=== PATIENT | male | born 1960 | race Caucasian/White ===

== ENCOUNTER 2018-10-10 17:16 | Inpatient (IN) ==
[2018-10-11] MEDS ORDERED: Bisacodyl 10 MG Supp RECTAL PRN (01:16)
[2018-10-11] MEDS ORDERED: Acetaminophen 325 MG Tablet PO PRN (01:16)
[2018-10-11] MEDS ORDERED: Vancomycin Consult Pharmacy OTHER PRN (01:22)
[2018-10-11] MEDS: Sod Chloride 0.9% Inj 1,000 ML IV.CONT SCH ×2 (02:10→14:27)
[2018-10-11] MEDS: Heparin - SQ 10,000 UNITS/ML Vial SQ SCH ×2 (02:10→14:26)
--- NOTE | 2018-10-11 02:17 | P.HPIM ---
History of Present Illness Service: [facility] Primary Care Physician: No Primary Care Physician Chief Complaint: Shortness of breath, cough History of Present Illness: 57-year-old male with a history of chronic pain presented to the ED with complaints of shortness of breath cough and fatigue for the past 2 weeks. He states he has been progressively getting worse over the last 2 weeks with shortness of breath, cough with yellow whitish sputum production, fever, chills, night sweats and nausea. He states he has no appetite and has lost about 15 pounds. He states he was around somebody that was sick at the [employer] and she sneezed all over him and he feels that so he got sick. He denies any chest pain, abdominal pain, dysuria, headaches, dizziness. Inpatient Certification Inpatient Certification: I certify that the inpatient services were ordered in accordance with Medicare regulations governing the order. This includes certification that hospital inpatient services are reasonable and necessary and in the case of services not specified as inpatient-only under 42 CFR 419.22(n), that they are appropriately provided as inpatient services in accordance to with the 2-midnight benchmark under 43 CFR 412.3(e) Estimated Total Length of Stay (Days): 2 Plans for Post Hospital Care: Not yet determined Review of Systems Review of Systems: all other systems reviewed are negative PMFSH History History Provided By: Patient Medical History Medical History Chronic pain (Acute) Surgical History Surgical History History of facial surgery (Acute) Previous back surgery (Acute) Family History Family History Father HTN (hypertension) Social History Social History Substance History: No History of Abuse Smoking Status: Never smoker How Often Do You Have a Drink Containing Alcohol: Never Medications and Allergies Allergies Allergy/AdvReac Type Severity Reaction Status Date / Time No Known Allergies Allergy Verified 10/10/18 17:24 Home Medications Medication Instructions Recorded Confirmed Type cyclobenzaprine 10 mg PO TID 10/10/18 10/10/18 History gabapentin 600 mg PO TID 10/10/18 10/10/18 History hydrocodone-acetaminophen 1 tab PO Q6H 10/10/18 10/10/18 History zolpidem [Ambien] PO DAILY 10/10/18 History Active Medications: Active Medications Acetaminophen (Tylenol) 650 mg PO Q4H PRN PRN Reason: Temp > 100.4 Al Hydroxide/Mg Hydroxide (Milk Of Magnesia Liq) 30 ml PO Q12H PRN PRN Reason: Mild Constipation Albuterol (Duoneb Neb (Prn)) 1 ampul NEB Q2HR NEB PRN PRN Reason: sob Albuterol (Duoneb Neb (Louise)) 1 ampul NEB Q6HR WHILE AWAKE NEB LOUISE Bisacodyl (Dulcolax Supp) 10 mg RECTAL DAILY PRN PRN Reason: SEVERE CONSITIPATION Heparin Sodium (Porcine) (Heparin Inj) 5,000 units SQ Q12H LOUISE Sodium Chloride (Ns Inj) 1,000 mls @ 100 mls/hr IV.CONT .Q10H LOUISE Piperacillin/Tazobactam/Dextrose (Zosyn 4.5 Gm Premix) 4.5 gm in 100 mls @ 200 mls/hr IV.SIG Q6H LOUISE Lactulose (Lactulose Liq) 30 ml PO DAILY PRN PRN Reason: SEVERE CONSITIPATION Ondansetron HCl (Zofran Inj) 4 mg IV.PUSH Q6H PRN PRN Reason: NAUSEA OR VOMITING Pharmacy Profile Note (Vancomycin Consult Pharmacy) 1 each OTHER UNSCH PRN PRN Reason: Pharmacy to dose Sennosides (Senokot) 17.2 mg PO Q12H PRN PRN Reason: Moderate Constipation Sodium Chloride (Ns Flush) 2 ml IV.FLUSH BID LOUISE Sodium Chloride (Ns Flush) 2 ml IV.FLUSH PRN PRN PRN Reason: FLUSH AFTER USING IV ACCESS Physical Exam Narrative: GENERAL: Acute distress, coughing, restless, short of breath on 2 L SKIN: Warm and dry. No open lesions EYES: No scleral icterus. No injection or drainage. NECK: Supple, trachea midline. No JVD or lymphadenopathy. CARDIOVASCULAR: Regular rate and rhythm without murmurs, gallops, or rubs. RESPIRATORY: Diminished lung sounds at bases, expiratory wheezes noted throughout GASTROINTESTINAL: Abdomen soft, non-tender, nondistended. MUSCULOSKELETAL: No cyanosis, or edema. Caprini VTE Risk Assessment Caprini VTE Risk Assessment: Moderate/High Risk (score >= 2) Caprini Risk Assessment Model: Point Value = 1 Point Value = 2 Point Value = 3 Point Value = 5 Age 41-60 Minor surgery BMI > 25 kg/m2 Swollen legs Varicose veins or History of unexplained or recurrent spontaneous Oral contraceptives or hormone replacement Sepsis (< 1 month) Serious lung disease, including pneumonia (< 1 month) Abnormal pulmonary function Acute myocardial infarction Congestive heart failure (< 1 month) History of inflammatory bowel disease Medical patient at bed rest Age 61-74 Arthroscopic surgery Major open surgery (> 45 min) Laparoscopic surgery (> 45 min) Malignancy Confined to bed (> 72 hours) Immobilizing plaster cast Central venous access Age >= 75 History of VTE Family history of VTE Factor V Leiden Prothrombin [id number] Lupus anticoagulant Anticardiolipin antibodies Elevated serum homocysteine Heparin-induced thrombocytopenia Other congenital or acquired thrombophilia Stroke (< 1 month) Elective arthroplasty Hip, pelvis, or leg fracture Acute spinal cord injury (< 1 month) Prophylaxis Regimen: Total Risk Factor Score Risk Level Prophylaxis Regimen 0-1 Low Early ambulation 2 Moderate Order ONE of the following: *Sequential Compression Device (SCD) *Heparin 5000 units SQ BID 3-4 Higher Order ONE of the following medications: *Heparin 5000 units SQ TID *Enoxaparin/Lovenox 40 mg SQ daily (WT < 150 kg, CrCl > 30 mL/min) *Enoxaparin/Lovenox 30 mg SQ daily (WT < 150 kg, CrCl > 10-29 mL/min) *Enoxaparin/Lovenox 30 mg SQ BID (WT < 150 kg, CrCl > 30 mL/min) AND/OR *Sequential Compression Device (SCD) 5 or more Highest Order ONE of the following medications: *Heparin 5000 units SQ TID (Preferred with Epidurals) *Enoxaparin/Lovenox 40 mg SQ daily (WT < 150 kg, CrCl > 30 mL/min) *Enoxaparin/Lovenox 30 mg SQ daily (WT < 150 kg, CrCl > 10-29 mL/min) *Enoxaparin/Lovenox 30 mg SQ BID (WT < 150 kg, CrCl > 30 mL/min) AND *Sequential Compression Device (SCD) Assessment and Plan Plan 57-year-old male with a history of chronic pain presented to the ED with complaints of shortness of breath cough and fatigue for the past 2 weeks. Severe sepsis, WBC 16.3, tachycardia heart rate 112, source bilateral pneumonia , lactate 2.[address] reviewed and shows Bilateral pneumonia consisting of widespread groundglass, nodular and cavitary infiltrates -2 L bolus given in the ED, continue IVF -IV antibiotics vancomycin and Zosyn -Sputum culture and AFB culture ordered -Blood cultures pending -Legionella and pneumococcal urinary antigen ordered -Repeat lactic acid pending Acute respiratory failure, 92% on room air upon admission, secondary to bilateral pneumonia -Duo nebs scheduled and as needed -IV steroids -Oxygen, 2 L nasal cannula Hypertensive emergency, blood pressure on admission systolic greater than 200 In the ED patient was treated with labetalol and clonidine -Continue IV labetalol, consider Cardene drip if no improvement Chronic pain -Resume home [place] and gabapentin, Flexeril as needed DVT prophylaxis: SCDs GI prophylaxis: Protonix
[2018-10-11] MEDS ORDERED: MethylPREDNISolone Sod Succinate Inj 125 MG/2 ML Vial IV.PUSH ONE (02:20)
[2018-10-11] MEDS: Pantoprazole Inj 40 MG Vial IV.PUSH SCH (03:00)
[2018-10-11] MEDS: Piperacil/Tazo 4.5 GM Premix 4.5 GM/100 ML BAG IV.SIG SCH ×4 (03:00→21:22)
[2018-10-11 03:42] LABS: Baso % (Auto) 0.3 % (0.0-2.0); Hematocrit 36.1 % (39.0-51.0); Hemoglobin 12.9 gm/dL (13.0-17.0); Lymph # (Auto) 1.7 th/mm3 (1.0-4.8); Mean Corpuscular HGB Conc 35.7 % (32.0-36.0); Mean Corpuscular Hemoglobin 31.2 pg (27.0-34.0); Mean Corpuscular Volume 87.2 fL (80.0-100.0); Mean Platelet Volume 8.1 fL (7.0-11.0); Mono # (Auto) 0.9 th/mm3 (0.0-0.9); Mono % (Auto) 7.1 % (0.0-8.0); Neut # (Auto) 10.6 th/mm3 (1.8-7.7); Neut % (Auto) 79.6 % (16.0-70.0); Platelet Count 212 th/mm3 (150-450); Red Blood Count 4.14 mil/mm3 (4.50-5.90); Red Cell Distribution Width 14.3 % (11.6-17.2); White Blood Count 13.3 th/mm3 (4.0-11.0)
[2018-10-11] MEDS ORDERED: Vancomycin Inj 1,000 MG in Sodium Chlor 0.9% Inj 250 ML IV.SIG ONE (04:00)
[2018-10-11 04:10] LABS: Calcium 7.5 mg/dL (8.5-10.1); Carbon Dioxide 27.3 meq/L (21.0-32.0)
[2018-10-11 04:14] LABS: Potassium 2.8 meq/L (3.5-5.1)
[2018-10-11] MEDS ORDERED: Potassium Chloride 25 MEQ Effervescent Tablet PO ONE (05:44)
[2018-10-11] MEDS: Gabapentin 300 MG Capsule PO SCH ×3 (08:50→17:25)
[2018-10-11] MEDS: MethylPREDNISolone Sod Succinate Inj 40 MG/ML Vial IV.PUSH SCH ×3 (09:02→21:22)
--- NOTE | 2018-10-11 09:58 | P.PNIM ---
Patient was seen this morning after being admitted for pneumonia and sepsis overnight. He is eating breakfast and breathing comfortably on supplemental oxygen. States that he is breathing much easier after treatment. Lung braxton still sound like pneumonia. I am adding incentive spirometry and Acapella to his treatment plan. Other than that continue IV antibiotics and supportive care.
[2018-10-11] MEDS: Labetalol HCl Inj 100 MG/20 ML Vial IV.PUSH PRN ×3 (12:26→22:55)
[2018-10-11] MEDS: Lisinopril 20 MG Tablet PO SCH (14:26)
[2018-10-11] MEDS: Vancomycin Inj 1,000 MG in Sodium Chlor 0.9% Inj 250 ML IV.SIG SCH (17:26)
[2018-10-11] MEDS: amLODIPine 10 MG Tablet PO SCH (18:30)
[2018-10-12] MEDS: Heparin - SQ 10,000 UNITS/ML Vial SQ SCH ×2 (04:31→13:14)
[2018-10-12] MEDS: Piperacil/Tazo 4.5 GM Premix 4.5 GM/100 ML BAG IV.SIG SCH ×4 (04:32→20:04)
[2018-10-12] MEDS: Pantoprazole Inj 40 MG Vial IV.PUSH SCH (04:32)
[2018-10-12] MEDS: MethylPREDNISolone Sod Succinate Inj 40 MG/ML Vial IV.PUSH SCH ×3 (05:23→23:22)
[2018-10-12] MEDS: Vancomycin Inj 1,000 MG in Sodium Chlor 0.9% Inj 250 ML IV.SIG SCH ×2 (05:25→17:21)
[2018-10-12 06:44] LABS: Hematocrit 36.7 % (39.0-51.0); Hemoglobin 12.6 gm/dL (13.0-17.0); Mean Corpuscular HGB Conc 34.3 % (32.0-36.0); Mean Corpuscular Hemoglobin 30.6 pg (27.0-34.0); Mean Corpuscular Volume 89.3 fL (80.0-100.0); Mean Platelet Volume 8.6 fL (7.0-11.0); Platelet Count 281 th/mm3 (150-450); Red Blood Count 4.12 mil/mm3 (4.50-5.90); Red Cell Distribution Width 14.6 % (11.6-17.2); White Blood Count 16.9 th/mm3 (4.0-11.0)
[2018-10-12 07:04] LABS: Calcium 8.1 mg/dL (8.5-10.1); Carbon Dioxide 26.7 meq/L (21.0-32.0)
[2018-10-12] MEDS: Lisinopril 20 MG Tablet PO SCH ×2 (08:53→19:59)
[2018-10-12] MEDS: amLODIPine 10 MG Tablet PO SCH (08:53)
[2018-10-12] MEDS: Gabapentin 300 MG Capsule PO SCH ×3 (08:53→17:21)
[2018-10-12] MEDS ORDERED: MethylPREDNISolone Sod Succinate Inj 40 MG/ML Vial IV.PUSH SCH (09:00)
[2018-10-12] MEDS: LORazepam 0.5 MG Tablet PO PRN (11:33)
--- NOTE | 2018-10-12 12:28 | P.PN ---
Subjective Interval history: Follow-up severe sepsis/community-acquired bacterial pneumonia/COPD exacerbation /malignant hypertension October 12, 2018-patient seen and examined, complains of shortness of breath and is wheezing on exam. States, he did not have a good night sleep. Physical Exam Vital signs: Vital Signs 10/11/18 12:35 10/11/18 12:48 10/11/18 13:00 Temperature 97.5 F L Pulse Rate 75 71 78 Respiratory Rate 19 18 Blood Pressure 201/90 H 185/88 H Pulse Oximetry 95 97 10/11/18 13:19 10/11/18 14:00 10/11/18 14:45 Temperature Pulse Rate 70 84 74 Respiratory Rate 16 18 Blood Pressure 161/75 H Pulse Oximetry 97 10/11/18 15:00 10/11/18 16:00 10/11/18 16:11 Temperature 97.6 F Pulse Rate 85 80 77 Respiratory Rate 19 Blood Pressure 173/78 H Pulse Oximetry 95 10/11/18 17:00 10/11/18 17:15 10/11/18 17:30 Temperature 98 F Pulse Rate 90 82 78 Respiratory Rate 19 18 Blood Pressure 192/93 H 179/78 H Pulse Oximetry 95 97 10/11/18 18:00 10/11/18 18:31 10/11/18 19:00 Temperature 98.6 F Pulse Rate 78 79 77 Respiratory Rate 18 18 Blood Pressure 174/84 H 200/94 H Pulse Oximetry 95 95 10/11/18 20:00 10/11/18 20:41 10/11/18 21:00 Temperature Pulse Rate 82 79 90 Respiratory Rate 17 Blood Pressure Pulse Oximetry 98 10/11/18 22:00 10/11/18 23:00 10/12/18 00:00 Temperature 98.2 F Pulse Rate 88 78 94 H Respiratory Rate 18 Blood Pressure 181/82 H Pulse Oximetry 95 10/12/18 01:00 10/12/18 02:00 10/12/18 03:00 Temperature 97.6 F Pulse Rate 93 H 93 H 83 Respiratory Rate 18 Blood Pressure 169/71 H Pulse Oximetry 93 L 10/12/18 04:00 10/12/18 05:00 10/12/18 06:00 Temperature Pulse Rate 78 80 81 Respiratory Rate Blood Pressure Pulse Oximetry 10/12/18 07:00 10/12/18 08:00 10/12/18 09:00 Temperature 97.5 F L Pulse Rate 92 H 80 90 Respiratory Rate 18 Blood Pressure 147/65 H Pulse Oximetry 95 10/12/18 10:00 10/12/18 10:48 10/12/18 11:32 Temperature 98.1 F Pulse Rate 78 76 Respiratory Rate 18 Blood Pressure 174/81 H Pulse Oximetry 97 95 Intake & Output 10/11/18 10/12/18 10/12/18 18:59 06:59 18:59 Intake Total 2420 / 2420 680 / 680 1250 / 1250 Output Total 870 / 870 Balance 1550 / 1550 680 / 680 1250 / 1250 Weight 79.1 kg 80 kg Intake: IV 1700 / 1700 200 / 200 1250 / 1250 NS Inj 1,000 ML @ 100 mls/hr IV 1000 / 1000 900 / 900 .CONT .Q10H CARTER Rx#:[id number] Zosyn 4.5 GM Premix 4.5 gm In 200 / 200 200 / 200 100 / 100 100 ml @ 200 mls/hr IV.SIG Q6H CARTER Rx#:[id number] Vancomycin Inj 1,000 MG In NS 500 / 500 250 / 250 Inj 250 ML @ 250 mls/hr IV.SIG Q12H CARTER Rx#:[id number] Oral 720 / 720 480 / 480 Output: Urine 870 / 870 Other: # Voids 3 Date of Last Bowel Movement 10/12/18 Narrative: GENERAL: NAD SKIN: Warm and dry. HEAD: Atraumatic. Normocephalic. EYES: Pupils equal and round. No scleral icterus. No injection or drainage. ENT: No nasal bleeding or discharge. Mucous membranes pink and moist. NECK: Trachea midline. No JVD. CARDIOVASCULAR: Regular rate and rhythm. RESPIRATORY: No accessory muscle use. Clear to auscultation. Breath sounds decreased bilaterally. Positive for expiratory wheezing GASTROINTESTINAL: Abdomen soft, non-tender, nondistended. Hepatic and splenic margins not palpable. MUSCULOSKELETAL: Extremities without clubbing, cyanosis, or edema. No obvious deformities. NEUROLOGICAL: Awake and alert. No obvious cranial nerve deficits. Motor grossly within normal limits. Five out of 5 muscle strength in the arms and legs. Normal speech. PSYCHIATRIC: Appropriate mood and affect; insight and judgment normal. Results - Labs CBC & Chem 7: 10/12/18 06:06 10/12/18 06:06 Laboratory Results - last 24 hr 10/11/18 10/12/18 10/12/18 11:33 06:06 06:06 WBC 16.9 H RBC 4.12 L Hgb 12.6 L Hct 36.7 L MCV 89.3 MCH 30.6 MCHC 34.3 RDW 14.6 Plt Count 281 D MPV 8.6 Sodium 140 Potassium 3.3 L 3.0 L Chloride 106 Carbon Dioxide 26.7 Anion Gap 7 BUN 9 Creatinine 0.89 Estimated GFR 88 L Random Glucose 169 H Calcium 8.1 L Microbiology 10/11/18 03:40 Sputum - Expectorated Sputum Gram Stain - Final 10/11/18 05:15 Urine - Clean Catch Urine Streptococcus pneumoniae Antigen ( M - Final Presumptive negative for streptococcus pneumoniae antigen, suggesting no current or recent infection. Infection due to Streptococcus pneumoniae cannot be ruled out since the antigen present in the sample may be below the detection limit of the test. 10/11/18 05:15 Urine - Clean Catch Urine Legionella Antigen - Final Presumptive negative for Legionella pneumophila serogroup 1 antigen in urine, suggesting no recent or recurrent infection. Infection due to Legionella cannot be ruled out since other serogroups and species may cause disease, antigen may not be present in urine in early infection, and the level of antigen present in the urine may be below the detection limit of the test. Assessment and Plan - Plan 57-year-old man Severe sepsis Currently on vancomycin and Zosyn pending culture report Community-acquired bacterial pneumonia with respiratory failure Currently on vancomycin and Zosyn Urinary pneumococcal and Legionella antigen negative Sputum culture pending DuoNeb as needed COPD exacerbation Increase Solu-Medrol to 40 mg 4 times daily Start Spiriva, Symbicort and continue with DuoNeb scheduled and as needed Malignant hypertension Improving Increase lisinopril to 20 mg twice daily, start hydralazine 25 mg 3 times daily and continue Norvasc Chronic pain syndrome Continue with home regiment Hypokalemia Give potassium 60 mEq x1 now and monitor electrolyte DVT prophylaxis: SCDs GI prophylaxis: Protonix Transfer to [facility]
[2018-10-12] MEDS ORDERED: hydrALAZINE 25 MG Tablet PO SCH (13:00)
[2018-10-12] MEDS ORDERED: hydrALAZINE 25 MG Tablet PO ONE (13:52)
[2018-10-12] MEDS: Labetalol HCl Inj 100 MG/20 ML Vial IV.PUSH PRN ×2 (17:20→21:45)
[2018-10-12] MEDS: Tiotropium Bromide 18 MCG/ACT Inhaler INH SCH (17:22)
[2018-10-12] MEDS ORDERED: Pharmacy Ordered Lab Info OTHER ONE (17:45)
[2018-10-12] MEDS: Metoprolol Tartrate 50 MG Tablet PO SCH ×2 (18:21→19:59)
[2018-10-12] MEDS: Budesonide-Formoterol 160/4.5 MCG 6 GM Inhaler INH SCH (19:59)
[2018-10-12] MEDS: hydrALAZINE 50 MG Tablet PO SCH (21:28)
[2018-10-13] MEDS: Heparin - SQ 10,000 UNITS/ML Vial SQ SCH ×2 (02:53→14:30)
[2018-10-13] MEDS: Piperacil/Tazo 4.5 GM Premix 4.5 GM/100 ML BAG IV.SIG SCH ×4 (02:53→22:10)
[2018-10-13] MEDS: Pantoprazole Inj 40 MG Vial IV.PUSH SCH (02:54)
[2018-10-13] MEDS: MethylPREDNISolone Sod Succinate Inj 40 MG/ML Vial IV.PUSH SCH ×2 (05:42→22:10)
[2018-10-13] MEDS ORDERED: Pharmacy Ordered Lab Info OTHER ONE (05:45)
[2018-10-13] MEDS: Metoprolol Tartrate 50 MG Tablet PO SCH ×2 (08:37→22:09)
[2018-10-13] MEDS: Lisinopril 20 MG Tablet PO SCH ×2 (08:37→22:09)
[2018-10-13] MEDS: Gabapentin 300 MG Capsule PO SCH ×3 (08:38→17:21)
[2018-10-13] MEDS: amLODIPine 10 MG Tablet PO SCH (08:38)
[2018-10-13] MEDS: hydrALAZINE 50 MG Tablet PO SCH ×3 (08:38→17:20)
[2018-10-13] MEDS: Budesonide-Formoterol 160/4.5 MCG 6 GM Inhaler INH SCH ×2 (08:39→22:10)
[2018-10-13] MEDS: Tiotropium Bromide 18 MCG/ACT Inhaler INH SCH (08:39)
[2018-10-13] MEDS ORDERED: Vancomycin Inj 1,500 MG in Sodium Chlor 0.9% Inj 500 ML IV.SIG SCH (11:00)
--- NOTE | 2018-10-13 11:08 | P.PN ---
Subjective Interval history: Follow-up severe sepsis/community-acquired bacterial pneumonia/COPD exacerbation /malignant hypertension October 12, 2018-patient seen and examined, complains of shortness of breath and is wheezing on exam. States, he did not have a good night sleep. October 13, 2018-patient seen and examined, reports some improvement of shortness of breath, denies any chest pain. BP still labile Physical Exam Vital signs: Vital Signs 10/12/18 11:32 10/12/18 12:00 10/12/18 12:41 Temperature 98.1 F Pulse Rate 76 80 89 Respiratory Rate 18 17 Blood Pressure 174/81 H 159/79 H Pulse Oximetry 95 94 L 10/12/18 13:00 10/12/18 13:50 10/12/18 13:51 Temperature Pulse Rate 94 H 85 98 H Respiratory Rate 17 16 Blood Pressure 166/74 H Pulse Oximetry 94 L 98 10/12/18 14:00 10/12/18 15:00 10/12/18 15:44 Temperature Pulse Rate 90 84 101 H Respiratory Rate 18 Blood Pressure 179/96 H Pulse Oximetry 96 10/12/18 16:00 10/12/18 17:00 10/12/18 17:32 Temperature 98.2 F Pulse Rate 100 H 98 H 88 Respiratory Rate 18 Blood Pressure 189/88 H Pulse Oximetry 96 10/12/18 17:46 10/12/18 18:03 10/12/18 19:00 Temperature 98.5 F Pulse Rate 85 87 85 Respiratory Rate 17 17 Blood Pressure 161/77 H 202/93 H Pulse Oximetry 95 92 L 10/12/18 20:00 10/12/18 21:00 10/12/18 22:00 Temperature Pulse Rate 85 79 79 Respiratory Rate Blood Pressure 183/89 H Pulse Oximetry 92 L 10/12/18 22:21 10/12/18 23:00 10/13/18 00:00 Temperature 98.6 F Pulse Rate 88 81 84 Respiratory Rate 16 17 Blood Pressure 165/74 H Pulse Oximetry 94 L 10/13/18 01:00 10/13/18 02:00 10/13/18 03:00 Temperature 98.5 F Pulse Rate 84 78 75 Respiratory Rate 17 Blood Pressure 153/80 H Pulse Oximetry 94 L 10/13/18 04:00 10/13/18 05:00 10/13/18 05:57 Temperature Pulse Rate 81 65 67 Respiratory Rate Blood Pressure Pulse Oximetry 10/13/18 07:00 10/13/18 08:00 10/13/18 09:00 Temperature 98.4 F Pulse Rate 67 72 84 Respiratory Rate 18 Blood Pressure 160/73 H Pulse Oximetry 94 L 94 L 10/13/18 10:00 Temperature Pulse Rate 92 H Respiratory Rate Blood Pressure Pulse Oximetry Intake & Output 10/12/18 10/13/18 10/13/18 18:59 06:59 18:59 Intake Total 2069 / 0 570 / 570 100 / 100 Output Total 300 / 300 Balance 2069 270 / 270 100 / 100 Weight 81 kg Intake: IV 1350 / 1350 450 / 450 100 / 100 NS Inj 1,000 ML @ 100 mls/hr IV 900 / 900 .CONT .Q10H CARTER Rx#:[id number] Zosyn 4.5 GM Premix 4.5 gm In 200 / 200 200 / 200 100 / 100 100 ml @ 200 mls/hr IV.SIG Q6H CARTER Rx#:[id number] Vancomycin Inj 1,000 MG In NS 250 / 250 250 / 250 Inj 250 ML @ 250 mls/hr IV.SIG Q12H CARTER Rx#:[id number] Oral 720 / 720 120 / 120 Output: Urine 300 / 300 Other: # Voids 6 Date of Last Bowel Movement 10/12/18 10/12/18 # Bowel Movements 2 Narrative: GENERAL: NAD SKIN: Warm and dry. HEAD: Atraumatic. Normocephalic. EYES: Pupils equal and round. No scleral icterus. No injection or drainage. ENT: No nasal bleeding or discharge. Mucous membranes pink and moist. NECK: Trachea midline. No JVD. CARDIOVASCULAR: Regular rate and rhythm. RESPIRATORY: No accessory muscle use. Clear to auscultation. Breath sounds decreased bilaterally. Positive for expiratory wheezing GASTROINTESTINAL: Abdomen soft, non-tender, nondistended. Hepatic and splenic margins not palpable. MUSCULOSKELETAL: Extremities without clubbing, cyanosis, or edema. No obvious deformities. NEUROLOGICAL: Awake and alert. No obvious cranial nerve deficits. Motor grossly within normal limits. Five out of 5 muscle strength in the arms and legs. Normal speech. PSYCHIATRIC: Appropriate mood and affect; insight and judgment normal. Results - Labs CBC & Chem 7: 10/12/18 06:06 10/12/18 06:06 Laboratory Results - last 24 hr 10/12/18 10/13/18 18:15 05:30 Vancomycin Trough 28.1 H 8.1 Microbiology 10/11/18 03:40 Sputum - Expectorated Sputum Gram Stain - Final 10/11/18 03:40 Sputum - Expectorated Sputum Sputum Culture - Final Heavy growth normal respiratory pablo 10/11/18 03:40 Sputum - Expectorated Sputum Acid Fast Bacilli Smear - Final No acid fast bacilli seen - Procedures None Assessment and Plan - Plan 57-year-old man Severe sepsis-Resolved Currently on vancomycin and Zosyn pending culture report Community-acquired bacterial pneumonia with respiratory failure Currently on vancomycin and Zosyn Urinary pneumococcal and Legionella antigen negative Sputum culture pending DuoNeb as needed COPD exacerbation Improving Decrease Solu-Medrol to 40 mg 12 times daily Continue Spiriva, Symbicort and DuoNeb scheduled and as needed Add Mucinex Malignant hypertension Improving Continue lisinopril 20 mg twice daily, hydralazine 50 mg 3 times daily , Lopressor 50 mg twice daily and Norvasc Chronic pain syndrome Continue with home regiment Hypokalemia Give potassium 60 mEq x1 now and monitor electrolyte DVT prophylaxis: SCDs GI prophylaxis: Protonix Transfer to [facility]
[2018-10-13] MEDS ORDERED: Benzonatate 100 MG Capsule PO PRN (12:19)
[2018-10-13] MEDS: guaiFENesin 600 MG ER Tablet PO SCH ×2 (12:54→22:10)
[2018-10-13] MEDS ORDERED: guaiFENesin 600 MG ER Tablet PO SCH (21:00)
[2018-10-13] MEDS: LORazepam 0.5 MG Tablet PO PRN (22:16)
[2018-10-13 23:34] VITALS: RESP 16
[2018-10-14] MEDS: Heparin - SQ 10,000 UNITS/ML Vial SQ SCH (03:02)
[2018-10-14] MEDS: Pantoprazole Inj 40 MG Vial IV.PUSH SCH (03:02)
[2018-10-14] MEDS: Piperacil/Tazo 4.5 GM Premix 4.5 GM/100 ML BAG IV.SIG SCH ×2 (03:03→07:48)
[2018-10-14 05:08] LABS: Baso % (Auto) 0.1 % (0.0-2.0); Hematocrit 39.5 % (39.0-51.0); Hemoglobin 13.7 gm/dL (13.0-17.0); Lymph # (Auto) 1.7 th/mm3 (1.0-4.8); Lymph % (Auto) 8.5 % (9.0-44.0); Mean Corpuscular HGB Conc 34.7 % (32.0-36.0); Mean Corpuscular Hemoglobin 30.9 pg (27.0-34.0); Mean Platelet Volume 8.3 fL (7.0-11.0); Mono # (Auto) 1.4 th/mm3 (0.0-0.9); Neut # (Auto) 16.6 th/mm3 (1.8-7.7); Neut % (Auto) 84.4 % (16.0-70.0); Platelet Count 395 th/mm3 (150-450); Red Blood Count 4.43 mil/mm3 (4.50-5.90); Red Cell Distribution Width 14.9 % (11.6-17.2); White Blood Count 19.6 th/mm3 (4.0-11.0)
[2018-10-14 05:26] LABS: Alanine Aminotransferase 46 U/L (12-78); Albumin 2.6 g/dL (3.4-5.0); Anion Gap 10 meq/L (5-15); Aspartate Aminotransferase 41 U/L (15-37); Blood Urea Nitrogen 11 mg/dL (7-18); Calcium 8.2 mg/dL (8.5-10.1); Carbon Dioxide 27.7 meq/L (21.0-32.0); Chloride 101 meq/L (98-107); Glomerular Filtration Rate 64 mL/min (>89); Glucose,Random 132 mg/dL (74-106); Potassium 3.1 meq/L (3.5-5.1); Sodium 139 meq/L (136-145)
[2018-10-14 05:29] LABS: Alkaline Phosphatase 97 U/L (45-117); Total Protein 7.2 g/dL (6.4-8.2)
[2018-10-14] MEDS: Gabapentin 300 MG Capsule PO SCH (08:56)
[2018-10-14] MEDS: MethylPREDNISolone Sod Succinate Inj 40 MG/ML Vial IV.PUSH SCH (08:56)
[2018-10-14] MEDS: hydrALAZINE 50 MG Tablet PO SCH (08:56)
[2018-10-14] MEDS: amLODIPine 10 MG Tablet PO SCH (08:56)
[2018-10-14] MEDS: Metoprolol Tartrate 50 MG Tablet PO SCH (08:56)
[2018-10-14] MEDS: Lisinopril 20 MG Tablet PO SCH (08:56)
[2018-10-14] MEDS: guaiFENesin 600 MG ER Tablet PO SCH (08:56)
[2018-10-14] MEDS: Tiotropium Bromide 18 MCG/ACT Inhaler INH SCH (08:57)
[2018-10-14] MEDS: Budesonide-Formoterol 160/4.5 MCG 6 GM Inhaler INH SCH (08:57)
--- NOTE | 2018-10-14 09:43 | P.PN ---
Subjective Interval history: Follow-up severe sepsis/community-acquired bacterial pneumonia/COPD exacerbation /malignant hypertension October 12, 2018-patient seen and examined, complains of shortness of breath and is wheezing on exam. States, he did not have a good night sleep. October 13, 2018-patient seen and examined, reports some improvement of shortness of breath, denies any chest pain. BP still labile October 14, 2018-patient seen and examined, denies any chest pain or shortness of breath. BP normotensive. No acute event overnight. Looking forward to go home today. Physical Exam Vital signs: Vital Signs 10/13/18 10:00 10/13/18 11:00 10/13/18 12:00 Temperature 98.0 F Pulse Rate 92 H 85 90 Respiratory Rate 16 Blood Pressure 180/84 H Pulse Oximetry 97 10/13/18 13:00 10/13/18 13:15 10/13/18 13:29 Temperature Pulse Rate 86 85 87 Respiratory Rate 16 16 Blood Pressure 143/67 H Pulse Oximetry 96 10/13/18 14:00 10/13/18 15:00 10/13/18 16:00 Temperature 98.1 F Pulse Rate 80 72 92 H Respiratory Rate 16 Blood Pressure 146/80 H Pulse Oximetry 95 10/13/18 17:00 10/13/18 18:00 10/13/18 19:00 Temperature 98.6 F Pulse Rate 92 H 98 H 93 H Respiratory Rate 18 Blood Pressure 202/95 H Pulse Oximetry 95 10/13/18 20:00 10/13/18 20:17 10/13/18 21:00 Temperature Pulse Rate 84 76 88 Respiratory Rate 16 Blood Pressure Pulse Oximetry 97 10/13/18 22:00 10/13/18 23:00 10/13/18 23:33 Temperature 98.6 F Pulse Rate 85 88 Respiratory Rate 18 16 Blood Pressure 202/95 H Pulse Oximetry 96 10/14/18 00:00 10/14/18 01:00 10/14/18 02:00 Temperature Pulse Rate 75 75 74 Respiratory Rate Blood Pressure Pulse Oximetry 10/14/18 03:00 10/14/18 04:00 10/14/18 05:00 Temperature Pulse Rate 76 68 70 Respiratory Rate Blood Pressure Pulse Oximetry 10/14/18 05:12 10/14/18 07:00 Temperature Pulse Rate 70 65 Respiratory Rate Blood Pressure Pulse Oximetry Intake & Output 10/13/18 10/14/18 10/14/18 18:59 06:59 18:59 Intake Total 2315 / 2315 680 / 680 100 / 100 Balance 2315 / 2315 680 / 680 100 / 100 Weight 81.6 kg Intake: IV 715 / 715 200 / 200 100 / 100 Zosyn 4.5 GM Premix 4.5 gm In 200 / 200 200 / 200 100 / 100 100 ml @ 200 mls/hr IV.SIG Q6H CARTER Rx#:[id number] Vancomycin Inj 1,500 MG In NS 515 / 515 Inj 500 ML @ 250 mls/hr IV.SIG Q24H CARTER Rx#:[id number] Oral 1600 / 1600 480 / 480 Other: # Voids 5 2 Date of Last Bowel Movement 10/12/18 Narrative: GENERAL: NAD SKIN: Warm and dry. HEAD: Atraumatic. Normocephalic. EYES: Pupils equal and round. No scleral icterus. No injection or drainage. ENT: No nasal bleeding or discharge. Mucous membranes pink and moist. NECK: Trachea midline. No JVD. CARDIOVASCULAR: Regular rate and rhythm. RESPIRATORY: No accessory muscle use. Clear to auscultation. Breath sounds decreased bilaterally. Positive for expiratory wheezing GASTROINTESTINAL: Abdomen soft, non-tender, nondistended. Hepatic and splenic margins not palpable. MUSCULOSKELETAL: Extremities without clubbing, cyanosis, or edema. No obvious deformities. NEUROLOGICAL: Awake and alert. No obvious cranial nerve deficits. Motor grossly within normal limits. Five out of 5 muscle strength in the arms and legs. Normal speech. PSYCHIATRIC: Appropriate mood and affect; insight and judgment normal. Results - Labs CBC & Chem 7: 10/14/18 03:10 10/14/18 03:10 Laboratory Results - last 24 hr 10/14/18 10/14/18 03:10 03:10 WBC 19.6 H RBC 4.43 L Hgb 13.7 Hct 39.5 MCV 89.0 MCH 30.9 MCHC 34.7 RDW 14.9 Plt Count 395 D MPV 8.3 Prelim Diff (Auto) Slide review pending Neut % (Auto) 84.4 H Lymph % (Auto) 8.5 L [place] % (Auto) 7.0 Eos % (Auto) 0.0 Baso % (Auto) 0.1 Neut # (Auto) 16.6 H Lymph # (Auto) 1.7 [place] # (Auto) 1.4 H Eos # (Auto) 0.0 Baso # (Auto) 0.0 Differential Comment . Sodium 139 Potassium 3.1 L Chloride 101 Carbon Dioxide 27.7 Anion Gap 10 BUN 11 Creatinine 1.17 Estimated GFR 64 L Random Glucose 132 H Calcium 8.2 L Total Bilirubin 0.4 AST 41 H ALT 46 Alkaline Phosphatase 97 Total Protein 7.2 D Albumin 2.6 L Microbiology 10/11/18 03:40 Sputum - Expectorated Sputum Gram Stain - Final 10/11/18 03:40 Sputum - Expectorated Sputum Sputum Culture - Final Heavy growth normal respiratory pablo 10/11/18 03:40 Sputum - Expectorated Sputum Acid Fast Bacilli Smear - Final No acid fast bacilli seen - Procedures None Assessment and Plan - Plan 57-year-old man Severe sepsis-Resolved Currently on vancomycin and Zosyn pending culture report Community-acquired bacterial pneumonia with respiratory failure-resolved Currently on vancomycin and Zosyn Urinary pneumococcal and Legionella antigen negative Sputum culture negative DuoNeb as needed COPD exacerbation Improved Currently Solu-Medrol to 40 mg 12 times daily Continue Spiriva, Symbicort and DuoNeb scheduled and as needed Add Mucinex Malignant hypertension Resolved Continue lisinopril 20 mg twice daily, hydralazine 50 mg 3 times daily , Lopressor 50 mg twice daily and Norvasc Chronic pain syndrome Continue with home regiment Hypokalemia Give potassium 60 mEq x1 now and monitor electrolyte DVT prophylaxis: SCDs GI prophylaxis: Protonix
--- NOTE | 2018-10-14 09:45 | P.DS ---
Date of admission: 10/11/18 01:03 Primary care physician: No Primary Care Physician Brief History from admission: 57-year-old male with a history of chronic pain presented to the ED with complaints of shortness of breath cough and fatigue for the past 2 weeks. He states he has been progressively getting worse over the last 2 weeks with shortness of breath, cough with yellow whitish sputum production, fever, chills , night sweats and nausea. He states he has no appetite and has lost about 15 pounds. He states he was around somebody that was sick at the [employer] and she sneezed all over him and he feels that so he got sick. He denies any chest pain, abdominal pain, dysuria, headaches, dizziness. DS: Medications - Discharge Medications Prescriptions: albuterol sulfate [Ventolin HFA] 2 puff INHALATION Q4-6H PRN #1 g PRN Reason: Shortness Of Breath amlodipine [Norvasc] 10 mg PO DAILY #30 tab azithromycin 500 mg PO DAILY #5 tab budesonide-formoterol [Symbicort] 2 puff INH BID #1 g guaifenesin [Mucinex] 600 mg PO BID #20 tab hydralazine 50 mg PO TID #90 tab ipratropium bromide [Atrovent HFA] 1 puff INHALATION QID #1 g lisinopril 20 mg PO BID #60 tab metoprolol tartrate 50 mg PO BID #60 tab prednisone 20 mg PO DAILY #7 tab tiotropium bromide [Spiriva with HandiHaler] 18 mcg INH DAILY #1 inh DS: Summary Hospital Course: While in the hospital, patient was treated for: Severe sepsis-Resolved He was treated with vancomycin and Zosyn pending culture report Community-acquired bacterial pneumonia with respiratory failure-resolved He was treated with vancomycin and Zosyn Urinary pneumococcal and Legionella antigen negative Sputum culture negative DuoNeb as needed COPD exacerbation Improved He was treated with Solu-Medrol , Spiriva, Symbicort and DuoNeb scheduled and as needed, Mucinex Malignant hypertension Resolved He was treated with lisinopril 20 mg twice daily, hydralazine 50 mg 3 times daily , Lopressor 50 mg twice daily and Norvasc Chronic pain syndrome Continue with home regiment Hypokalemia Potassium was replaced accordingly DVT prophylaxis: SCDs GI prophylaxis: Protonix - Time Spent with Patient Total time spent providing and/or coordinating discharge services: Less than 30 minutes - Quality: VTE Deep Vein Thrombosis/Pulmonary Embolism Present on Admission: No Exam Vital signs: Vital Signs 10/13/18 10:00 10/13/18 11:00 10/13/18 12:00 Temperature 98.0 F Pulse Rate 92 H 85 90 Respiratory Rate 16 Blood Pressure 180/84 H Pulse Oximetry 97 10/13/18 13:00 10/13/18 13:15 10/13/18 13:29 Temperature Pulse Rate 86 85 87 Respiratory Rate 16 16 Blood Pressure 143/67 H Pulse Oximetry 96 10/13/18 14:00 10/13/18 15:00 10/13/18 16:00 Temperature 98.1 F Pulse Rate 80 72 92 H Respiratory Rate 16 Blood Pressure 146/80 H Pulse Oximetry 95 10/13/18 17:00 10/13/18 18:00 10/13/18 19:00 Temperature 98.6 F Pulse Rate 92 H 98 H 93 H Respiratory Rate 18 Blood Pressure 202/95 H Pulse Oximetry 95 10/13/18 20:00 10/13/18 20:17 10/13/18 21:00 Temperature Pulse Rate 84 76 88 Respiratory Rate 16 Blood Pressure Pulse Oximetry 97 10/13/18 22:00 10/13/18 23:00 10/13/18 23:33 Temperature 98.6 F Pulse Rate 85 88 Respiratory Rate 18 16 Blood Pressure 202/95 H Pulse Oximetry 96 10/14/18 00:00 10/14/18 01:00 10/14/18 02:00 Temperature Pulse Rate 75 75 74 Respiratory Rate Blood Pressure Pulse Oximetry 10/14/18 03:00 10/14/18 04:00 10/14/18 05:00 Temperature Pulse Rate 76 68 70 Respiratory Rate Blood Pressure Pulse Oximetry 10/14/18 05:12 10/14/18 07:00 Temperature Pulse Rate 70 65 Respiratory Rate Blood Pressure Pulse Oximetry Intake & Output 10/13/18 10/14/18 10/14/18 18:59 06:59 18:59 Intake Total 2315 / 2315 680 / 680 100 / 100 Balance 2315 / 2315 680 / 680 100 / 100 Weight 81.6 kg Intake: IV 715 / 715 200 / 200 100 / 100 Zosyn 4.5 GM Premix 4.5 gm In 200 / 200 200 / 200 100 / 100 100 ml @ 200 mls/hr IV.SIG Q6H CARTER Rx#:[id number] Vancomycin Inj 1,500 MG In NS 515 / 515 Inj 500 ML @ 250 mls/hr IV.SIG Q24H CARTER Rx#:[id number] Oral 1600 / 1600 480 / 480 Other: # Voids 5 2 Date of Last Bowel Movement 10/12/18 Narrative: GENERAL: NAD SKIN: Warm and dry. HEAD: Atraumatic. Normocephalic. EYES: Pupils equal and round. No scleral icterus. No injection or drainage. ENT: No nasal bleeding or discharge. Mucous membranes pink and moist. NECK: Trachea midline. No JVD. CARDIOVASCULAR: Regular rate and rhythm. RESPIRATORY: No accessory muscle use. Clear to auscultation. Breath sounds decreased bilaterally. Positive for expiratory wheezing GASTROINTESTINAL: Abdomen soft, non-tender, nondistended. Hepatic and splenic margins not palpable. MUSCULOSKELETAL: Extremities without clubbing, cyanosis, or edema. No obvious deformities. NEUROLOGICAL: Awake and alert. No obvious cranial nerve deficits. Motor grossly within normal limits. Five out of 5 muscle strength in the arms and legs. Normal speech. PSYCHIATRIC: Appropriate mood and affect; insight and judgment normal. Results Procedures completed during hospitalization: None Labs on day of discharge: Labs from last 24 hours 10/14/18 10/14/18 03:10 03:10 WBC 19.6 H RBC 4.43 L Hgb 13.7 Hct 39.5 MCV 89.0 MCH 30.9 MCHC 34.7 RDW 14.9 Plt Count 395 D MPV 8.3 Prelim Diff (Auto) Slide review pending Neut % (Auto) 84.4 H Lymph % (Auto) 8.5 L [place] % (Auto) 7.0 Eos % (Auto) 0.0 Baso % (Auto) 0.1 Neut # (Auto) 16.6 H Lymph # (Auto) 1.7 [place] # (Auto) 1.4 H Eos # (Auto) 0.0 Baso # (Auto) 0.0 WBC Differential Pending Differential Comment . Sodium 139 Potassium 3.1 L Chloride 101 Carbon Dioxide 27.7 Anion Gap 10 BUN 11 Creatinine 1.17 Estimated GFR 64 L Random Glucose 132 H Calcium 8.2 L Total Bilirubin 0.4 AST 41 H ALT 46 Alkaline Phosphatase 97 Total Protein 7.2 D Albumin 2.6 L Discharge Plan - Discharge Disposition Patient Disposition: 01 Discharge Home - Discharge Condition Condition: Good - Discharge Order Discharge Orders: Discharge Order (Routine); Ordered 10/14/18 Ordered By: Krish Lugo - Physicians Team Primary Care Provider: Primary Dixie Bustillo Attending Provider: Krish Lugo - Rxs /Orders / Referrals /Forms Prescriptions: New albuterol sulfate [Ventolin HFA] 90 mcg/actuation Hfa Aerosol Inhaler 2 puff INHALATION Q4-6H PRN (Reason: Shortness Of Breath) Qty: 1 RF: 3 amlodipine [Norvasc] 10 mg Tablet 10 mg PO DAILY Qty: 30 RF: 3 azithromycin 250 mg Tablet 500 mg PO DAILY Qty: 5 RF: 0 budesonide-formoterol [Symbicort] 160-4.5 mcg/actuation Hfa Aerosol Inhaler 2 puff INH BID Qty: 1 RF: 3 guaifenesin [Mucinex] 600 mg Tablet Extended Release 12hr 600 mg PO BID Qty: 20 RF: 0 hydralazine 50 mg Tablet 50 mg PO TID Qty: 90 RF: 3 ipratropium bromide [Atrovent HFA] 17 mcg/actuation Hfa Aerosol Inhaler 1 puff INHALATION QID Qty: 1 RF: 3 lisinopril 20 mg Tablet 20 mg PO BID Qty: 60 RF: 3 metoprolol tartrate 50 mg Tablet 50 mg PO BID Qty: 60 RF: 3 prednisone 5 mg Tablet 20 mg PO DAILY Qty: 7 RF: 0 tiotropium bromide [Spiriva with HandiHaler] 18 mcg Capsule, W/Inhalation Device 18 mcg INH DAILY Qty: 1 RF: 3 Continue cyclobenzaprine 10 mg Tablet 10 mg PO TID gabapentin 300 mg/6 mL (6 mL) Solution 600 mg PO TID hydrocodone-acetaminophen 7.5-300 mg Tablet 1 tab PO Q6H zolpidem [Ambien] 10 mg Tablet PO DAILY Referrals: Primary Care Dixie Bills [Primary Care Provider] - See Instructions
[2018-10-14 09:57] VITALS: BP 154/79; PULSE 76; TEMP 97.7; O2SAT 98
[2018-10-16] MEDS ORDERED: Pharmacy Ordered Lab Info OTHER ONE (10:45)
== END 2018-10-14 13:00 | disposition home or self-care (01) ==
LOC: NEDDLT 17:16 → HCPC 10-11 01:03
PROVIDERS: ADMIT Hospitalist; ATTEND Hospitalist